=== PATIENT | female | born 1995 | race Caucasian/White ===

== ENCOUNTER 2017-03-29 12:25 | Emergency (ER) | payer OTHER ==
[2017-03-29 12:39] VITALS: BP 142/77; PULSE 88; TEMP 98.4; BMI 43.3
[2017-03-29] MEDS ORDERED: ALBUTEROL SO4 2.5/IPRATROPIUM 0.5 INH SOL 3 ML VIAL.NEB. NEB ONE (13:09)
--- NOTE | 2017-03-29 13:16 | PDOC ---
History of Present Illness - General Chief Complaint: Respiratory Stated Complaint: RESPIRATORY Time Seen by Provider: 03/29/17 13:01 History Source: Patient Exam Limitations: No Limitations - History of Present Illness Initial Comments: 03/29/17 13:16 Patient is a 22-year-old female, no significant medical history, currently in college. For 3 weeks has been having cough, productive green sputum was seen on [facility] 3 weeks ago given Medrol Dosepak after completing it she still with cough and bronchospasm they then gave her azithromycin. She completed the azithromycin 2 days ago still with bronchospasm patient reports that it feels heavy in her chest and she is unable to take a deep breath dry cough, persistent noted upon arrival. Patient is afebrile. Past Medical History: [Denies]. Allergies: No known allergies Medications: [No regular meds] Family History: Non-contributory Social History: Denies smoking, alcohol use, or IVDU Review of Systems GENERAL/CONSTITUTIONAL: [No fever or chills. No weakness. No weight change.] HEAD, EYES, EARS, NOSE AND THROAT: [No change in vision. No ear pain or discharge. No sore throat. ] CARDIOVASCULAR: [No chest pain or shortness of breath.] RESPIRATORY: [Persistent bronchospasm productive cough, no wheezing, or hemoptysis.] GASTROINTESTINAL: [No nausea, vomiting, diarrhea or constipation. No rectal bleeding.] GENITOURINARY: [No dysuria, frequency, or change in urination.] MUSCULOSKELETALAND BREASTS: [No rash or easy bruising.] NEUROLOGIC: [No headache, vertigo, loss of consciousness, or loss of sensation.] ENDOCRINE: [No increased thirst. No abnormal weight change.] HEMATOLOGIC/LYMPHATIC: [No anemia, easy bleeding, or history of blood clots.] ALLERGIC/IMMUNOLOGIC: [No hives or skin allergy. No latex allergy.] Physical Exam: GENERAL: [The patient is awake, alert, and fully oriented, in no acute distress. ] HEAD: [Normal with no signs of trauma.] EYES: [Pupils equal, round and reactive to light, extraocular movements intact, sclera anicteric, conjunctiva clear.] ENT: [Ears normal, nares patent, oropharynx clear without exudates. Moist mucous membranes. No uvula deviation] NECK: [Normal range of motion, supple without lymphadenopathy, JVD, or masses.] LUNGS: [Breath sounds equal, rhonchi cleared with cough. No wheezes, and no crackles. Decreased at the bases.] HEART: [Regular rate and rhythm, normal S1 and S2 without murmur, rub or gallop. ] ABDOMEN: [Soft, nontender, normoactive bowel sounds. No guarding, no rebound. No masses. No bruising or abrasions] MUSCULOSKELETAL: [Normal range of motion, no edema. No clubbing or cyanosis. No cords, erythema, or tenderness. No CVA Tenderness with fist.] NEUROLOGICAL: [Cranial nerves II through XII grossly intact. Normal speech, normal gait.] SKIN: [Warm, Dry, normal turgor, no rashes or lesions noted. Dry scaling skin to bilateral upper eyelids. ] Past History - Past Medical History Allergies/Adverse Reactions: Allergies Allergy/AdvReac Type Severity Reaction Status Date / Time No Known Allergies Allergy Verified 03/29/17 12:38 Home Medications: Ambulatory Orders Albuterol Sulfate Inhaler - [Ventolin HFA Inhaler -] 2 inh PO Q4H #1 inh Clarithromycin [Biaxin -] 500 mg PO BID #14 tablet 03/29/17 Tacrolimus 30 gm TP BID #1 oint...g. 03/29/17 COPD: No - Suicide/Smoking/Psychosocial Hx Smoking History: Never smoked *Physical Exam - Vital Signs Last Vital Signs Temp Pulse Resp BP Pulse Ox 98.4 F 88 18 142/77 99 03/29/17 12:36 03/29/17 12:36 03/29/17 12:36 03/29/17 12:36 03/29/17 12:36 ED Treatment Course - LABORATORY CBC & Chemistry Diagram: 03/29/17 13:32 Medical Decision Making - Medical Decision Making 03/29/17 14:42 A/P: Patient with cough, bronchospasm for three weeks. Also with atopic dermatitis of the bilateral upper eyelids. Plan: Monoscreen, CBC Urine preg Chest xray. Combivent. 03/29/17 16:02 Patient is nontoxic appearing, playful and smiling , no respiratory distress, s /p neb, the patient is sating 98%on room air. Chest x-ray with no acute cardiopulmonary disease CBC demonstrates elevated WBCs most likely from recent steroid use. Patient appears well after treatment will DC patient on albuterol, Biaxin, Decadron 10 mg by mouth given once while in emergency room, promethazine for cough. I discussed the physical exam findings, ancillary test results and final diagnoses with the patient. I answered all of the patient's questions. The patient was satisfied with the care received and felt comfortable with the discharge plan and treatment plan. The patient will call to arrange follow-up and will return to the Emergency Department with any new, persistent or worsening symptoms. *DC/Admit/Observation/Transfer Diagnosis at time of Disposition: Bronchitis - Discharge Dispostion Disposition: HOME Condition at time of disposition: Good Admit: No - Prescriptions Prescriptions: Albuterol Sulfate Inhaler - [Ventolin HFA Inhaler -] 2 inh PO Q4H #1 inh Clarithromycin [Biaxin -] 500 mg PO BID #14 tablet Tacrolimus 30 gm TP BID #1 oint...g. - Referrals Referrals: Dash Pinto MD [Primary Care Provider] - - Patient Instructions Printed Discharge Instructions: DI for Acute Bronchitis Additional Instructions: Keep head of bed elevated 45 when sleeping Treatments every 4 hours as needed Antibiotics as ordered until completed Followup in the primary care doctor's office in 2 days for evaluation. If any respiratory distress, increased cough, inability to drink, increased wheezing please return immediately to emergency department. - Post Discharge Activity Forms/Work/School Notes: Back to Work
[2017-03-29 13:43] LABS: BASOPHIL 0.5 % (0-2.0); EOSINOPHIL 1.7 % (0-4.5); MCH 28.4 pg (25.7-33.7); MCHC 32.9 g/dl (32.0-36.0); MEAN CELL VOLUME 86.1 fl (80-96); MEAN PLT VOLUME 9.7 fl (7.5-11.1); NEUTROPHILS 70.9 % (42.8-82.8); PLATELET COUNT 261 K/MM3 (134-434); RDW 14.2 % (11.6-15.6); WHITE BLOOD COUNT 15.8 K/mm3 (4.0-10.0)
[2017-03-29] MEDS ORDERED: DEXAMETHASONE LIQUID 0.5 MG/5 ML 240 ML BULK BOTTLE PO ONE (14:47)
[2017-03-29] MEDS ORDERED: DEXAMETHASONE SOD PHOSPHATE 10 MG/1 ML VIAL ONE (14:53)
== END 2017-03-29 15:03 | disposition home or self-care (01) ==
LOC: JERFT 12:25
PROC: 3E0F7GC Introduction of Other Therapeutic Substance into Respiratory Tract, Via Natural or Artificial Opening (ICD-10-PCS; principal; 2017-03-29)
DX: J40 Bronchitis, not specified as acute or chronic (principal)
CPT/HCPCS: 36415; 71020-TC; 84703; 85025; 86308; 99281-25